=== PATIENT | female | born 1960 | race African-American/Black ===

== ENCOUNTER 2016-08-22 19:06 | Emergency (ER) | payer BC, OTHER ==
[~2016-08-22 19:06] MED LIST: ACETAMINOPHEN PO; ALLEVE; COLACE PO; COLACE50 MG PO; DOCUSATE SODIU100 MG PO; FERROUS SULFATE PO; FLEXERIL10 MG PO; HYDROCODON-ACE1 EAC7 PO; IBUPROFEN PO; NAPROSYN500 MG PO; PHENOBARB PO; PROTONIX PO; VICODIN 5/500 T1 TAB PO; VICODIN PO
== END 2016-08-22 20:10 | disposition home or self-care (01) ==
LOC: CFTX 19:06 → CED 19:06 → CFTX 19:31
DX: M62.838 Other muscle spasm (principal); M54.2 Cervicalgia; G89.29 Other chronic pain; I25.2 Old myocardial infarction; Z98.51 Tubal ligation status; F17.210 Nicotine dependence, cigarettes, uncomplicated; Z88.8 Allergy status to other drugs, medicaments and biological substances
CPT/HCPCS: 99283

== ENCOUNTER 2016-08-25 12:58 | Emergency (ER) | payer OTHER ==
--- NOTE | ~2016-08-25 | CR58 ---
[facility] A Service of [facility] RADIOLOGY TEXT RESULTS PATIENT: KEVIN RICO LOCATION: [place] : 58 UNIT #: [id number] AGE: [address]: Shanti Johnson SEX: F ORDER DR: [id number] [facility] [address] [place], [place] [address] [id number] E MR#: [id number] Acc #: [id number] NAME: KEVIN RICO. : 1960 SEX: F STUDY DATE/TIME: 08/25/2016 13:52 UNIT: [facility] ROOM: STUDY DESCRIPTION: CR Cervical Spine 2 or 3 Views Attending Physician: Shanti Johnson Pa-C Ordering Physician: Ed Anoop Ferreira M.D. Primary Care Physician: [facility] MEDICAL IMAGING REPORT This report is preliminary unless electronic signature is present EXAM Cervical spine, 3 views, 08/25/2016. HISTORY Right side neck pain and spasms for 2 months worsening for the past 5 days no known injury. FINDINGS Five views of the cervical spine demonstrate no fracture. There is a 2 mm anterolisthesis of C3 on C4 and C4 on C5. The remainder of the posterior vertebral body line is intact. There is degenerative change with moderate disc space narrowing at C5-6 and C6-7 with anterior and posterior osteophytes at the same levels and there is degenerative change involving articular facets. There is no retropharyngeal soft tissue swelling. IMPRESSION Multilevel degenerative change in the cervical spine. No acute abnormality. Dictated by... Julien Israel M.D. THIS IS AN ELECTRONICALLY VERIFIED REPORT Julien Israel M.D. at 08/26/2016 2:13 PM ROCKY/licha TD: 08/26/2016 00:01 JOB #: [id number] MEDICAL IMAGING REPORT Page 1 of 1 COPY
== END 2016-08-25 15:43 | disposition home or self-care (01) ==
LOC: CED 12:58 → CFTX 12:58
DX: M54.2 Cervicalgia (principal); F17.200 Nicotine dependence, unspecified, uncomplicated; Z88.8 Allergy status to other drugs, medicaments and biological substances
CPT/HCPCS: 72040; 99283

== ENCOUNTER 2016-10-15 10:29 | Emergency (ER) | payer OTHER ==
[~2016-10-15] VITALS: Ht 181.6 cm; Wt 122.5 kg
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
== END 2016-10-15 11:57 | disposition home or self-care (01) ==
LOC: CED 10:29 → CFTX 10:29
DX: S16.1XXA Strain of muscle, fascia and tendon at neck level, initial encounter (principal); S60.211A Contusion of right wrist, initial encounter; V49.40XA Driver injured in collision with unspecified motor vehicles in traffic accident, initial encounter; Y93.89 Activity, other specified; Y92.410 Unspecified street and highway as the place of occurrence of the external cause
CPT/HCPCS: 29260; 72040; 73110; 99284; J1170; J2270; J2405; J3010